=== PATIENT | female | born 1970 | race Caucasian/White ===

== ENCOUNTER 2019-04-25 08:43 | Inpatient (IN) | payer MEDICARE, MEDICAID ==
[~2019-04-25] VITALS: Ht 165.1 cm; Wt 137.0 kg
[~2019-04-25 08:43] MED LIST: ARIP15TA3 PO; DONE5TAB7 PO; INHALER; SERT100T PO; TRAZ-182 PO
--- NOTE | 2019-04-25 08:55 | NUR ---
Patient wants to come in to the psych unit - voluntary admission; " my head is not thinking right." Patient a/ox4, breathing even and unlabored, no sob noted, patient assisted to bed 6. Changed into a gown. No distress noted. Safety precaution observed.
--- NOTE | 2019-04-25 09:02 | NUR ---
URINE SAMPLE SENT TO LAB.
[2019-04-25 09:07] LABS: APPEARANCE,URINE Clear (CLEAR); BILIRUBIN,URINE Negative (NEGATIVE); BLOOD, URINE Trace-intact Ery/uL (NEGATIVE); COLOR,URINE Yellow (YELLOW); KETONES,URINE Negative (NEGATIVE); LEUKOCYTE ESTERASE ,URINE Negative (NEGATIVE); NITRITE, URINE Negative (NEGATIVE); PROTEIN,URINE Negative (NEGATIVE); UGLUCOSE Negative (NEGATIVE); UROBILINOGEN,URINE 0.2 EU/dL (0.2)
[2019-04-25 09:08] LABS: BACTERIA,URINE Few /HPF (None Seen); SQUAMOUS EPITHELIAL CELL,UR Few /HPF (None Seen); WBC,URINE 0-2 /HPF (0-3)
[2019-04-25 09:15] LABS: BASOPHILS % (AUTO) 0.5 % (0.0-2.0); EOSINOPHILS % (AUTO) 2.2 % (0.0-6.0); HEMATOCRIT 30 % (33-45); HEMOGLOBIN 9.7 g/dL (11.5-14.8); LYMPHOCYTES # (AUTO) 1.4 /CMM (0.8-4.8); LYMPHOCYTES % (AUTO) 15.8 % (20.0-44.0); MEAN CORPUSCULAR HGB CONC 33 g/dl (31.0-36.0); MEAN CORPUSCULAR VOLUME 78 fL (82-100); MONOCYTES # (AUTO) 0.5 /CMM (0.1-1.30); NEUTROPHILS # (AUTO) 6.7 /CMM (1.8-8.9); NEUTROPHILS % (AUTO) 75.5 % (43.0-81.0); PLATELET COUNT (AUTO) 416 /CMM (150-450); RED BLOOD CELL COUNT(AUTO) 3.79 MIL/uL (4.0-5.2); WHITE BLOOD COUNT (AUTO) 8.9 K/uL (4.3-11.0)
[2019-04-25 09:24] LABS: CALCIUM, SERUM 9.1 mg/dL (8.5-10.1); CARBON DIOXIDE 22 mmol/L (21-32); CHLORIDE 107 mmol/L (98-107); CREATININE 0.8 mg/dL (0.6-1.3); GLUCOSE 101 mg/dL (74-106); POTASSIUM 3.6 mmol/L (3.5-5.1); SODIUM SERUM 141 mmol/L (136-145); UREA NITROGEN, BLOOD 14 mg/dL (7-18)
[2019-04-25 09:29] LABS: ALANINE AMINOTRANSFERASE 17 U/L (12-78); ALBUMIN 3.2 g/dL (3.4-5.0); ALCOHOL, BLOOD < 3 mg/dL (0-0); ALKALINE PHOSPHATASE 109 U/L (46-116); ASPARTATE AMINOTRANSFERASE 15 U/L (15-37); BILIRUBIN,DIRECT 0.1 mg/dL (0.0-0.2); BILIRUBIN,TOTAL 0.2 mg/dL (0.2-1.0); TOTAL PROTEIN, SERUM 7.3 g/dL (6.4-8.2)
[2019-04-25 09:30] LABS: ACETAMINOPHEN 0 ug/ml (10-30); SALICYLATE 0.6 mg/dL (2.8-20.0)
--- NOTE | 2019-04-25 10:01 | NUR ---
room 214
[2019-04-25] MEDS ORDERED: Z-PACK (10:09)
[2019-04-25] MEDS ORDERED: OMEP20CA11 PO (10:09)
[2019-04-25] MEDS ORDERED: FLUT1DIS5 IH (10:09)
[2019-04-25] MEDS ORDERED: GABA300C PO (10:09)
[2019-04-25] MEDS ORDERED: ACET-73 PO (10:09)
[2019-04-25] MEDS ORDERED: TOPI50TA PO (10:09)
[2019-04-25] MEDS ORDERED: BENZ200C53 PO (10:09)
[2019-04-25] MEDS ORDERED: ESCI20TA PO (10:09)
[2019-04-25] MEDS ORDERED: ZIPR20CA2 PO (10:09)
[2019-04-25] MEDS ORDERED: LEVE500T9 PO (10:09)
--- NOTE | 2019-04-25 10:37 | NUR ---
report given to the Vladimir nurse
[2019-04-25 11:00] VITALS: BP 109/87
--- NOTE | 2019-04-25 11:00 | NUR ---
GPS ADMITTING NOTE: PT ADMITTED FROM HOME CAME TO ED FOR FEELING DEPRESSED,PT CAME ON VOLUNTARY STAY. UPON FACE TO FACE ASSESSMENT PT A/OX4, AMBULATORY, SELF CARE, PT FEELING DEPRESSED, TALKING TO SELF , HEARING VOICES . PT WAS SEEN AND EXAMINE BY DR UMAÑA , MEDICATIONS GIVEN PER ORDER. DARRIAN URRUTIA NOTIFIED RECONCILED MEDICATIONS, MRSA DONE . PT SKIN INTACT AND CLEAN , ALL CONTRABAND TAKEN FROM PT.
[2019-04-25] MEDS ORDERED: MAG HYDROX/AL HYDROX/SIMETH 30 ML UDC PO PRN (11:30)
[2019-04-25] MEDS ORDERED: LORAZEPAM 0.5 MG TABLET PO PRN (11:30)
[2019-04-25] MEDS ORDERED: BLOOD SUGAR DIAGNOSTIC 1 EACH STRIP IN ONE (11:30)
[2019-04-25] MEDS: risperiDONE 1 MG TABLET PO SCH ×2 (13:12→20:42)
[2019-04-25] MEDS: DIVALPROEX SODIUM 250 MG TABLET.DR PO SCH ×2 (13:12→16:44)
[2019-04-25] MEDS: BENZTROPINE MESYLATE (1 MG) 1 MG TABLET PO SCH ×2 (13:12→20:42)
[2019-04-25 16:00] VITALS: BP 124/55
[2019-04-25 20:00] VITALS: BP 135/78
[2019-04-25] MEDS: LEVETIRACETAM (250 MG) 250 MG TABLET PO SCH (20:42)
--- NOTE | 2019-04-25 22:34 | NUR ---
GPS RN NOTES CALLED AND NOTIFIED [facility] QA AUTOMATION ENGINEER DR. TORRES PT. IS REQUESTING FOR HER FLUTICASONE INHALER AND MEDICATION FOR HER COUGH. PT. HAS HER FLUTICASONE INHALER PRESCRIBED ONCE DAILY BUT PT. STATES SHE TAKES IT TWICE A DAY. PER [facility] QA AUTOMATION ENGINEER DR. TORRES NEW ORDERS: FLUTICASONE INHALER BID AND ROBITUSSIN 10ML Q6 HOUR PRN COUGH. WILL CARRY OUT ORDERS. WILL CONTINUE TO MONITOR.
[2019-04-25] MEDS: FLUTICASONE/VILANTEROL 1 EACH BLST.W.DEV IH SCH (23:14)
[2019-04-25] MEDS: GUAIFENESIN/D-METHORPHAN HB 5 ML UDC PO PRN (23:15)
[2019-04-26] MEDS: ACETAMINOPHEN 325 MG TABLET PO PRN (04:30)
[2019-04-26] MEDS: GUAIFENESIN/D-METHORPHAN HB 5 ML UDC PO PRN (05:21)
[2019-04-26 07:35] LABS: BILIRUBIN,TOTAL 0.3 mg/dL (0.2-1.0); CALCIUM, SERUM 8.7 mg/dL (8.5-10.1); CREATININE 0.8 mg/dL (0.6-1.3); POTASSIUM 3.6 mmol/L (3.5-5.1)
[2019-04-26 07:38] LABS: CHOLESTEROL 189 mg/dL (<200); HDL CHOLESTEROL 70 mg/dL (40-60); LDL 106 mg/dL (0-99); TRIGLYCERIDES 46 mg/dL (30-150)
[2019-04-26 08:00] VITALS: BP 117/69
[2019-04-26] MEDS: PANTOPRAZOLE 40 MG TABLET.DR PO SCH (08:46)
[2019-04-26] MEDS: DIVALPROEX SODIUM 250 MG TABLET.DR PO SCH ×2 (08:46→13:00)
[2019-04-26] MEDS: BENZTROPINE MESYLATE (1 MG) 1 MG TABLET PO SCH ×2 (08:46→20:39)
[2019-04-26] MEDS: risperiDONE 1 MG TABLET PO SCH ×2 (08:46→16:49)
[2019-04-26] MEDS: LEVETIRACETAM (250 MG) 250 MG TABLET PO SCH ×2 (08:46→20:40)
[2019-04-26] MEDS: FLUTICASONE/VILANTEROL 1 EACH BLST.W.DEV IH SCH ×2 (08:47→16:50)
[2019-04-26] MEDS ORDERED: FLUTICASONE/VILANTEROL 1 EACH BLST.W.DEV IH SCH (09:00)
--- NOTE | 2019-04-26 10:43 | NUR ---
GPS/RN-NOTES RECEIVED VERBAL ORDER FROM CHASIDY TO D/C ATIVAN 0.5MG P.O PRN. AND ORDERED ATIVAN 1MG P.O Q6HR PRN FOR ANXIETY AND RISPERDAL 1MG P.O X1 ONLY. NOTED AND CARRIED OUT.
[2019-04-26] MEDS ORDERED: risperiDONE 1 MG TABLET PO ONE (11:00)
[2019-04-26] MEDS: LORAZEPAM 1 MG TABLET PO PRN (11:10)
[2019-04-26] MEDS: AZITHROMYCIN 250 MG TABLET PO SCH (11:10)
--- NOTE | 2019-04-26 11:15 | NUR ---
GPS/RN-NOTES NOTED PATIENT VERY ANXIOUS ,ARGUMENTATIVE.PATIENT WAS SEEN BY DR. UMAÑA VERBAL WITH ORDERED TO GIVE ATIVAN. ATIVAN 1MG P.O PRN ORDER. WILL CONT. MONITORING FOR SAFETY AND BEHAVIOR.
--- NOTE | 2019-04-26 13:42 | NUR ---
GPS/RN-NOTES DEPAKOTE 250MG P.O NOT ADMINISTER DUE TO PATIENT WAS TOO SEDATED.
--- NOTE | 2019-04-26 14:40 | NUR ---
SW called the pts mother, Niya ([phone]), and informed her about the pts treatment plan and the pts initial discharge plan. Pts mother stated concern that the pt is having auditory hallucinations and need her medications to be adjusted. SW stated that is what is being worked on during this hospitalization and that the SW will keep her updated.
--- NOTE | 2019-04-26 15:23 | NUR ---
Group Note: Pt encouraged the pt to participate in group therapy on 04/26/19 at 2pm on the topic of discharge planning. Pt stated that she wants to either go back to her home or go to a different facility because she hears people saying terrible things about her and feels unsafe in this environment. SW provided an individual intervention and informed her that the voices are in her head and that the medications that are being given to her at the hospital will assist with the voices going away so she will be able to feel safe. Pt stated that she wanted to remain sleeping in her room and that she did not appreciate being woken up.
[2019-04-26 16:00] VITALS: BP 100/54
[2019-04-26 19:57] VITALS: BP 124/66
[2019-04-27] MEDS: GUAIFENESIN/D-METHORPHAN HB 5 ML UDC PO PRN ×2 (04:38→15:07)
[2019-04-27 08:00] VITALS: BP 123/66
[2019-04-27] MEDS: LEVETIRACETAM (250 MG) 250 MG TABLET PO SCH ×2 (08:34→21:30)
[2019-04-27] MEDS: DIVALPROEX SODIUM 250 MG TABLET.DR PO SCH ×2 (08:34→12:50)
[2019-04-27] MEDS: BENZTROPINE MESYLATE (1 MG) 1 MG TABLET PO SCH ×2 (08:34→21:30)
[2019-04-27] MEDS: PANTOPRAZOLE 40 MG TABLET.DR PO SCH (08:34)
[2019-04-27] MEDS: risperiDONE 1 MG TABLET PO SCH ×3 (08:35→17:11)
[2019-04-27] MEDS: FLUTICASONE/VILANTEROL 1 EACH BLST.W.DEV IH SCH ×2 (08:36→17:13)
[2019-04-27] MEDS: MAGNESIUM HYDROXIDE 30 ML UDC PO PRN (10:41)
[2019-04-27] MEDS: AZITHROMYCIN 250 MG TABLET PO SCH (10:41)
--- NOTE | 2019-04-27 10:47 | NUR ---
RN NOTE: PATIENT COMPLAINING OF CONSTIPATION.L PRN MOM GIVEN.
--- NOTE | 2019-04-27 11:01 | NUR ---
Initial Discharge Note: Pt currently resides in her home alone located at [address] [place] [address]; ([phone]). Per pt, she would like to return to her home or be taken to a different facility where she will feel more safe. SW will work with the pt and the MD regarding appropriate discharge planning. SW will form a safe and proper discharge.
[2019-04-27] MEDS: ALBUTEROL FS 2.5 MG/0.5 ML VIAL.NEB NEB PRN ×2 (11:40→15:20)
--- NOTE | 2019-04-27 15:08 | NUR ---
RN NOTE: PATIENT COUGHING. PRN ROBITUSSIN GIVEN.
--- NOTE | 2019-04-27 15:20 | NUR ---
SW met with the pt in her room to discuss her voluntary status because the pt stated that she wanted to be discharged against medical advice. SW explained to the pt that she has an impaired reality due to the hallucinations that she is experiencing and that the medications that she is being placed on in the hospital can assist with that. Pt stated that she hears people are talking about her and saying mean statements that make her feel unsafe. SW stated that she would like the pt to remain at the hospital and be compliant with her medications and informed her that if she attempts to leave AMA then the MD can have her evaluated and then placed on a hold.
[2019-04-27 16:00] VITALS: BP 114/75
--- NOTE | 2019-04-27 16:00 | NUR ---
RN NOTE: PATIENT WAS HAVING PARANOID AUDITORY HALLUCINATIONS STATING THAT A MAN WAS CALLING HER A NAZI. LATER, SHE CAME TO THE STATION AND FROZE. WHEN I ASKED HER WHAT'S GOING ON SHE STATED, "YOU DON'T SEE THE BEE HIVE RIGHT BEHIND ME?" Addendum: 04/28/19 at 1551 by ROXANN HENSLEY RN PATIENT DENIES VOICES TELLING HER TO HARM HERSELF
[2019-04-27] MEDS: LORAZEPAM 1 MG TABLET PO PRN (17:11)
--- NOTE | 2019-04-27 17:12 | NUR ---
RN NOTE: PATIENT IS VERY ANXIOUS. PRN ATIVAN GIVEN.
--- NOTE | 2019-04-27 17:31 | NUR ---
RN NOTE: PATIENT IS HAVING AUDITORY HALLUCINATIONS THINKING THAT PEOPLE ARE CALLING HER A NAZI AND STATING THAT THERE IS A BEE HIVE RIGHT BEHIND HER.
[2019-04-27 20:11] VITALS: BP 116/47
[2019-04-27] MEDS: DIVALPROEX SODIUM 500 MG TABLET.DR PO SCH (21:30)
[2019-04-27] MEDS: TEMAZEPAM 7.5 MG CAPSULE PO PRN (21:31)
[2019-04-28 08:00] VITALS: BP 112/72
[2019-04-28] MEDS: PANTOPRAZOLE 40 MG TABLET.DR PO SCH (09:10)
[2019-04-28] MEDS: DIVALPROEX SODIUM 250 MG TABLET.DR PO SCH ×2 (09:11→12:28)
[2019-04-28] MEDS: BENZTROPINE MESYLATE (1 MG) 1 MG TABLET PO SCH ×2 (09:11→20:30)
[2019-04-28] MEDS: LEVETIRACETAM (250 MG) 250 MG TABLET PO SCH ×2 (09:11→20:48)
[2019-04-28] MEDS: risperiDONE 1 MG TABLET PO SCH ×3 (09:11→16:16)
[2019-04-28] MEDS: FLUTICASONE/VILANTEROL 1 EACH BLST.W.DEV IH SCH ×2 (09:13→16:17)
[2019-04-28] MEDS: LORAZEPAM 1 MG TABLET PO PRN (12:39)
--- NOTE | 2019-04-28 12:39 | NUR ---
RN NOTE: PATIENT IS ANXIOUS AND AGITATED. PRN ATIVAN OFFERED. PATIENT REFUSED. MED WASTED IN OMNICELL WITH WITNESS.
--- NOTE | 2019-04-28 15:29 | NUR ---
Group Note: SW encouraged pt to attend group therapy on 04/28/19 at 2:30pm discussing anger management for when they are in the hospital and for once they are discharged but pt unable to attend.
--- NOTE | 2019-04-28 15:47 | NUR ---
RN NOTE: PATIENT IS HAVING AUDITORY HALLUCINATIONS AND IS EXTREMELY PARANOID. SHE IS STATING THAT THE NEIGHBOR'S FAMILY IS CALLING HER A NAZI AND TALKING BAD ABOUT HER. WE WENT IN THE [place] TO HEAR IT BUT SHE STATED SHE DOESN'T HEAR IT ANYMORE BUT IT WAS THERE. Addendum: 04/28/19 at 1551 by ROXANN HENSLEY RN PATIENT DENIES VOICES TELLING HER TO HARM HERSELF OR OTHERS
[2019-04-28 16:00] VITALS: BP 109/58
--- NOTE | 2019-04-28 16:52 | NUR ---
RN NOTE: PATIENT IS HAVING AUDITORY HALLUCINATIONS. WHEN I INFORMED THE PATIENT THAT I DONT HEAR WHAT YOURE HEARING SHE STATED THAT I NEED TO OPEN UP MY BRAIN JUST A LITTLE BIT. PATIENT CALLED ME A BITCH AND TOLD ME TO GET THE HELL OUT HER ROOM. PATIENT IS [id number].
[2019-04-28 20:00] VITALS: BP 116/61
[2019-04-28 20:06] VITALS: BP 116/61
[2019-04-28] MEDS: DIVALPROEX SODIUM 500 MG TABLET.DR PO SCH (20:30)
[2019-04-29 00:24] VITALS: BP 116/61
[2019-04-29] MEDS: ACETAMINOPHEN 325 MG TABLET PO PRN (04:07)
[2019-04-29] MEDS: GUAIFENESIN/D-METHORPHAN HB 5 ML UDC PO PRN (04:25)
[2019-04-29 08:00] VITALS: BP 125/89
[2019-04-29] MEDS: PANTOPRAZOLE 40 MG TABLET.DR PO SCH (08:15)
[2019-04-29] MEDS: FLUTICASONE/VILANTEROL 1 EACH BLST.W.DEV IH SCH ×2 (08:15→16:35)
[2019-04-29] MEDS: risperiDONE 1 MG TABLET PO SCH ×3 (08:16→16:34)
[2019-04-29] MEDS: DIVALPROEX SODIUM 250 MG TABLET.DR PO SCH ×2 (08:16→12:21)
[2019-04-29] MEDS: BENZTROPINE MESYLATE (1 MG) 1 MG TABLET PO SCH ×2 (08:16→20:11)
[2019-04-29] MEDS: LEVETIRACETAM (250 MG) 250 MG TABLET PO SCH ×2 (08:17→20:11)
--- NOTE | 2019-04-29 12:08 | NUR ---
SW spoke to the pt and informed of her of the steps proceeding her attempting to leave against medical advice (AMA). SW advised her to stay voluntarily because she is not presenting stable and therefore if she attempts to leave that she may get placed on a hold.
--- NOTE | 2019-04-29 13:02 | NUR ---
RN NOTE: UPON BODY ASSESSMENT, NOTICED 1+ EDEMA ON BLE. INFORMED WM FELIX. HE WILL ASSESS PATIENT UPON ARRIVAL. HE WILL ASSESS PATIENT UPON ARRIVAL.
--- NOTE | 2019-04-29 13:05 | NUR ---
RN NOTE: PATIENT IS PARANOID. SHE IS THINKING THAT EVERYONE IS TALKING ABOUT HER. I KEEP INFORMING HER THAT I DON'T HEAR ANYONE TALKING ABOUT HER. PATIENT IS RESPONDING TO INTERNAL STIMULI AND IS HAVING AUDITORY HALLUCINATIONS.
[2019-04-29] MEDS: FUROSEMIDE 40 MG TABLET PO SCH (14:17)
[2019-04-29 15:06] LABS: CALCIUM, SERUM 8.8 mg/dL (8.5-10.1); CREATININE 0.6 mg/dL (0.6-1.3); POTASSIUM 4.2 mmol/L (3.5-5.1)
[2019-04-29 16:00] VITALS: BP 122/66
[2019-04-29 20:00] VITALS: BP 126/64
[2019-04-29] MEDS: DIVALPROEX SODIUM 500 MG TABLET.DR PO SCH (20:11)
[2019-04-29] MEDS: LORAZEPAM 1 MG TABLET PO PRN (20:11)
[2019-04-29 20:48] VITALS: BP 126/64
--- NOTE | 2019-04-29 21:30 | NUR ---
RN NOTES: -AT 2110 SHE REQUEST FOR HER PILL SHE FEEL ANXIOUS REMEMBERING THAT SHE WANTED TO CHANGE HER DOCTOR, EXPLAINED TO HER HAT WE WILL TRY TO F/U IN THE MORNING THEN SHE AGREED. -CONTINUE TO MONITOR, BED LOW AND LOCKED,BED ALARM ON, KEPT ON CLOSE WATCH. -AT 0 ABLE TO SLEEP WELL.
--- NOTE | 2019-04-30 05:22 | NUR ---
RN NOTES: AWAKE WITH ON AND OFF COUGH, RT REQUESTED TO GIVE HANDHELD NEBULIZER, SHE AGREED AND TOLERATED.
[2019-04-30] MEDS: ALBUTEROL FS 2.5 MG/0.5 ML VIAL.NEB NEB PRN (05:23)
[2019-04-30 07:58] LABS: BASOPHILS % (AUTO) 0.4 % (0.0-2.0); EOSINOPHILS % (AUTO) 2.3 % (0.0-6.0); HEMATOCRIT 31 % (33-45); LYMPHOCYTES # (AUTO) 1.9 /CMM (0.8-4.8); LYMPHOCYTES % (AUTO) 23.4 % (20.0-44.0); MEAN CORPUSCULAR HGB CONC 32 g/dl (31.0-36.0); MEAN CORPUSCULAR VOLUME 78 fL (82-100); MONOCYTES # (AUTO) 0.5 /CMM (0.1-1.30); MONOCYTES % (AUTO) 6.3 % (2.0-12.0); NEUTROPHILS # (AUTO) 5.6 /CMM (1.8-8.9); NEUTROPHILS % (AUTO) 67.6 % (43.0-81.0); PLATELET COUNT (AUTO) 426 /CMM (150-450); RED BLOOD CELL COUNT(AUTO) 3.99 MIL/uL (4.0-5.2); WHITE BLOOD COUNT (AUTO) 8.2 K/uL (4.3-11.0)
[2019-04-30 08:00] VITALS: BP 124/77
[2019-04-30 08:08] LABS: BILIRUBIN,TOTAL 0.2 mg/dL (0.2-1.0); CALCIUM, SERUM 8.9 mg/dL (8.5-10.1); CREATININE 0.8 mg/dL (0.6-1.3); POTASSIUM 3.9 mmol/L (3.5-5.1); TOTAL PROTEIN, SERUM 7.2 g/dL (6.4-8.2)
[2019-04-30] MEDS: risperiDONE 1 MG TABLET PO SCH ×3 (08:25→17:09)
[2019-04-30] MEDS: PANTOPRAZOLE 40 MG TABLET.DR PO SCH (08:25)
[2019-04-30] MEDS: DIVALPROEX SODIUM 250 MG TABLET.DR PO SCH ×2 (08:25→12:03)
[2019-04-30] MEDS: FLUTICASONE/VILANTEROL 1 EACH BLST.W.DEV IH SCH ×2 (08:25→17:08)
[2019-04-30] MEDS: LEVETIRACETAM (250 MG) 250 MG TABLET PO SCH ×2 (08:26→20:18)
[2019-04-30] MEDS: BENZTROPINE MESYLATE (1 MG) 1 MG TABLET PO SCH ×2 (08:30→20:18)
--- NOTE | 2019-04-30 08:31 | NUR ---
gps/rn pt refused cogentin offered x3
[2019-04-30] MEDS: ACETAMINOPHEN 325 MG TABLET PO PRN (15:12)
[2019-04-30 16:00] VITALS: BP_SYST 113; BP_SYST 130; BP_DIAS 60; BP_DIAS 84
[2019-04-30 20:00] VITALS: BP 132/65
[2019-04-30 20:13] VITALS: BP 132/65
[2019-04-30] MEDS: DIVALPROEX SODIUM 500 MG TABLET.DR PO SCH (20:18)
[2019-05-01] MEDS: GUAIFENESIN/D-METHORPHAN HB 5 ML UDC PO PRN (01:44)
--- NOTE | 2019-05-01 01:44 | NUR ---
GPS RN NOTE, PATIENT HAS A COMPLAINT OF A PERSISTENT COUGH AND IS REQUESTING ROBITUSSIN AT THIS TIME. PATIENT VITAL SIGNS ARE STABLE. GAVE ROBITUSSIN DM 10 ML PO Q6HR PRN ORDERED. WILL REASSESS FOR COUGH AND I WILL CONTINUE TO MONITOR THIS PATIENT.
--- NOTE | 2019-05-01 04:40 | NUR ---
GPS RN notes Called RT for nebulizer treatment for Pt. Pt is awake with on and off cough. Pt requesting nebulizer. Pt states " Can I have nebulizer?". Awating for RT to come.
[2019-05-01] MEDS: ALBUTEROL FS 2.5 MG/0.5 ML VIAL.NEB NEB PRN (04:49)
--- NOTE | 2019-05-01 04:49 | NUR ---
GPS RN notes Rt at the bedside.
[2019-05-01] MEDS: ACETAMINOPHEN 325 MG TABLET PO PRN (06:16)
--- NOTE | 2019-05-01 06:18 | NUR ---
GPS RN notes Pt is complaining of back pain and requesting Tylenol. Administered Tylenol 325mg/2tabs/PO as ordered for pain per Pt request. Pt states "Can I have Tylenol for my back pain please?" Instructed to call. Will continue to monitor Q 15 mins.
--- NOTE | 2019-05-01 06:47 | NUR ---
GPS RN notes Pt refused to have blood drawn by hospital laboratory technician. Pt states "it's been three times." Educate Pt about important to have blood check. Pt keep refusing. Will continue to monitor.
[2019-05-01 08:00] VITALS: BP 137/82
[2019-05-01] MEDS: PANTOPRAZOLE 40 MG TABLET.DR PO SCH (08:45)
[2019-05-01] MEDS: DIVALPROEX SODIUM 250 MG TABLET.DR PO SCH ×2 (08:46→13:11)
[2019-05-01] MEDS: BENZTROPINE MESYLATE (1 MG) 1 MG TABLET PO SCH ×3 (08:46→20:36)
[2019-05-01] MEDS: risperiDONE 1 MG TABLET PO SCH ×3 (08:46→17:00)
[2019-05-01] MEDS: LEVETIRACETAM (250 MG) 250 MG TABLET PO SCH ×2 (08:46→20:36)
[2019-05-01] MEDS: FLUTICASONE/VILANTEROL 1 EACH BLST.W.DEV IH SCH (08:47)
[2019-05-01 10:16] LABS: CALCIUM, SERUM 8.7 mg/dL (8.5-10.1); CREATININE 0.7 mg/dL (0.6-1.3); MAGNESIUM 1.9 mg/dL (1.8-2.4); PHOSPHORUS 3.9 mg/dL (2.5-4.9); POTASSIUM 3.7 mmol/L (3.5-5.1)
[2019-05-01 10:26] LABS: THYROID STIMULATING HORMONE 1.665 uIU/mL (0.358-3.74)
[2019-05-01] MEDS: FUROSEMIDE 40 MG TABLET PO SCH (13:11)
[2019-05-01] MEDS: ADVAIR INH SCH (17:01)
[2019-05-01 20:00] VITALS: BP 111/54
[2019-05-01 20:05] VITALS: BP 111/54
[2019-05-01] MEDS: DIVALPROEX SODIUM 500 MG TABLET.DR PO SCH (20:36)
[2019-05-02] MEDS: ALBUTEROL FS 2.5 MG/0.5 ML VIAL.NEB NEB PRN ×2 (03:19→08:46)
[2019-05-02 07:04] LABS: CALCIUM, SERUM 8.8 mg/dL (8.5-10.1); CREATININE 0.7 mg/dL (0.6-1.3); POTASSIUM 3.6 mmol/L (3.5-5.1)
[2019-05-02 07:25] LABS: THYROID STIMULATING HORMONE 3.877 uIU/mL (0.358-3.74)
[2019-05-02] MEDS ORDERED: POTASSIUM CHLORIDE 20 MEQ TAB.PRT.SR PO ONE (07:30)
[2019-05-02 08:00] VITALS: BP 119/69
[2019-05-02] MEDS: risperiDONE 1 MG TABLET PO SCH ×4 (08:22→21:22)
[2019-05-02] MEDS: DIVALPROEX SODIUM 250 MG TABLET.DR PO SCH ×2 (08:22→12:24)
[2019-05-02] MEDS: FUROSEMIDE 40 MG TABLET PO SCH (08:22)
[2019-05-02] MEDS: LEVETIRACETAM (250 MG) 250 MG TABLET PO SCH ×2 (08:22→20:22)
[2019-05-02] MEDS: PANTOPRAZOLE 40 MG TABLET.DR PO SCH (08:23)
[2019-05-02] MEDS: ADVAIR INH SCH ×2 (08:23→16:05)
[2019-05-02] MEDS: BENZTROPINE MESYLATE (1 MG) 1 MG TABLET PO SCH ×2 (08:24→20:22)
--- NOTE | 2019-05-02 14:50 | NUR ---
Group Note: Pt attended group therapy on 05/02/19 at 1:30pm discussing the topic of support systems for when they are in the hospital and for once they are discharged S: Pt stated, My support system is the program that I belong to. Its called [facility] and they give me a outsole caser that helps me navigate and have access to the support I need, such as my therapist and the medication I require for my schizophrenia. O: Pt was present during the group session and was engaged. Pt appeared alert and presented with a flat affect and congruent mood. Pt maintained appropriate eye contact and had an appropriate tone of voice. A: Pt expressed that when she is upset because she cant get help with managing her medication and finding an appropriate psychiatrist for when she is discharged. Pt became visibly upset as she spoke about losing the support of a former long-term therapist and hopes to repair that relationship in the future. P: Pt will continue milieu treatment and medication stabilization.
[2019-05-02 16:00] VITALS: BP 124/72
[2019-05-02] MEDS: DIVALPROEX SODIUM 500 MG TABLET.DR PO SCH (19:48)
[2019-05-02] MEDS: TEMAZEPAM 7.5 MG CAPSULE PO PRN (20:23)
[2019-05-02] MEDS: LORAZEPAM 1 MG TABLET PO PRN (21:22)
--- NOTE | 2019-05-03 01:12 | NUR ---
RN NOTES Patient complaints of upset stomach, feeling of indigestion. Offered Maalox as ordered, patient took the medication well. Encouraged patient to assume L side lying position. Will continue to monitor accordingly.
[2019-05-03] MEDS: ALBUTEROL FS 2.5 MG/0.5 ML VIAL.NEB NEB PRN ×2 (06:27→22:14)
[2019-05-03] MEDS: ACETAMINOPHEN 325 MG TABLET PO PRN (06:47)
[2019-05-03 08:00] VITALS: BP 132/85
[2019-05-03] MEDS: MAGNESIUM HYDROXIDE 30 ML UDC PO PRN (08:19)
--- NOTE | 2019-05-03 08:19 | NUR ---
GIVEN MOM FOR CONSTIPATION.
[2019-05-03] MEDS: ADVAIR INH SCH ×2 (08:20→17:24)
[2019-05-03] MEDS: FUROSEMIDE 40 MG TABLET PO SCH (08:20)
[2019-05-03] MEDS: LEVETIRACETAM (250 MG) 250 MG TABLET PO SCH ×2 (08:20→21:18)
[2019-05-03] MEDS: PANTOPRAZOLE 40 MG TABLET.DR PO SCH (08:20)
[2019-05-03] MEDS: risperiDONE 1 MG TABLET PO SCH ×4 (08:20→21:20)
[2019-05-03] MEDS: DIVALPROEX SODIUM 250 MG TABLET.DR PO SCH (08:25)
[2019-05-03] MEDS: BENZTROPINE MESYLATE (1 MG) 1 MG TABLET PO SCH ×3 (08:25→21:18)
[2019-05-03 10:14] LABS: CALCIUM, SERUM 8.8 mg/dL (8.5-10.1); CREATININE 0.8 mg/dL (0.6-1.3); POTASSIUM 3.8 mmol/L (3.5-5.1)
--- NOTE | 2019-05-03 14:00 | NUR ---
[facility] BY DR. UMAÑA AND SENT TO PHARMACY-RECEIPT TO CHART.
[2019-05-03 15:48] VITALS: BP 135/79
--- NOTE | 2019-05-03 16:33 | NUR ---
PT. NOW REPORTS DIARRHEA AFTER HAVING MOM THIS AM.
[2019-05-03 20:00] VITALS: BP 96/56
[2019-05-03] MEDS: DIVALPROEX SODIUM 500 MG TABLET.DR PO SCH (20:07)
--- NOTE | 2019-05-03 23:02 | NUR ---
GPS-RN PATIENT WAS THROWING UP WITH FOOD CONTENT IN LARGE AMOUNT. ABDOMEN IS SOFT AND NON-TENDER. OFFERED MAALOX BUT PATIENT REFUSED. NO C/O PAIN OR DISCOMFORT AT THIS TIME. PATIENT HAD BOWEL MOVEMENT TODAY. WILL CONTINUE TO MONITOR PATIENT.
[2019-05-04] MEDS: LORAZEPAM 1 MG TABLET PO PRN (06:17)
[2019-05-04 07:24] LABS: BASOPHILS % (AUTO) 0.4 % (0.0-2.0); EOSINOPHILS % (AUTO) 2.1 % (0.0-6.0); HEMATOCRIT 30 % (33-45); HEMOGLOBIN 9.6 g/dL (11.5-14.8); LYMPHOCYTES # (AUTO) 1.7 /CMM (0.8-4.8); LYMPHOCYTES % (AUTO) 26.1 % (20.0-44.0); MEAN CORPUSCULAR HGB CONC 32 g/dl (31.0-36.0); MEAN CORPUSCULAR VOLUME 78 fL (82-100); MONOCYTES # (AUTO) 0.4 /CMM (0.1-1.30); MONOCYTES % (AUTO) 6.3 % (2.0-12.0); NEUTROPHILS # (AUTO) 4.3 /CMM (1.8-8.9); NEUTROPHILS % (AUTO) 65.1 % (43.0-81.0); PLATELET COUNT (AUTO) 406 /CMM (150-450); RED BLOOD CELL COUNT(AUTO) 3.82 MIL/uL (4.0-5.2); WHITE BLOOD COUNT (AUTO) 6.6 K/uL (4.3-11.0)
[2019-05-04 07:52] LABS: ALBUMIN 2.9 g/dL (3.4-5.0); BILIRUBIN,TOTAL 0.2 mg/dL (0.2-1.0); CREATININE 0.7 mg/dL (0.6-1.3)
[2019-05-04 08:00] VITALS: BP 153/78
[2019-05-04] MEDS: BENZTROPINE MESYLATE (1 MG) 1 MG TABLET PO SCH ×3 (09:00→20:22)
[2019-05-04] MEDS: ADVAIR INH SCH ×2 (09:05→18:57)
[2019-05-04] MEDS: FUROSEMIDE 40 MG TABLET PO SCH (09:18)
[2019-05-04] MEDS: PANTOPRAZOLE 40 MG TABLET.DR PO SCH (09:18)
[2019-05-04] MEDS: LEVETIRACETAM (250 MG) 250 MG TABLET PO SCH ×2 (09:19→20:22)
[2019-05-04] MEDS: DIVALPROEX SODIUM 250 MG TABLET.DR PO SCH (09:20)
[2019-05-04] MEDS ORDERED: MISCELLANEOUS MED 1 EA EA XX ONE (11:30)
--- NOTE | 2019-05-04 11:30 | NUR ---
DR. UMAÑA HERE [facility] ORDERED THEN DC'D.NEURO CONSULT ORDERED, HERE,DR. UMAÑA TO CONTACT HIM .DOSES CHANGED ON DEPAKOTE AND RISPERDAL.VS CHECKED.BP 130/68,HEART RATE 99,POX 98%.PT. APPEARS A LITTLE WEAK,BUT STABLE.PT. INFORMED DR. UMAÑA THAT SHE VOMITED LAST NOC AND POSSIBLY HAD A SEIZURE.
[2019-05-04] MEDS ORDERED: risperiDONE 1 MG TABLET PO ONE ×2 (12:00→15:00)
--- NOTE | 2019-05-04 14:35 | NUR ---
Individual Intervention: SW met with the pt who stated that she did not want to be transferred to a facility and that she wants to be discharged home. SW stated that the MD believes that she is not fit to return to her home at this time and therefore she needs to go to facility for further stabilization.
--- NOTE | 2019-05-04 14:37 | NUR ---
SNF Referral: SW faxed a referral to 2 SNFs listed below. [facility]: [phone] [facility]: [phone].
--- NOTE | 2019-05-04 15:50 | NUR ---
GROUP NOTE: SW encouraged pt to attend group therapy discussing "discharge planning." Pt stated that she wanted to go home and that she did not want to go to a SNF as she did not being in one. Pt states that she has been living alone for along time and does not want to lose her independence. Pt acknowledges that sometimes she isn't able to take care of her self but states that her [facility] program will help her get on the "right track." Pt expressed that she feels ready to go home and has been compliant with her treatment and just really wants to be discharged.
[2019-05-04 16:00] VITALS: BP 112/62
[2019-05-04] MEDS ORDERED: risperiDONE 1 MG TABLET PO SCH (17:00)
--- NOTE | 2019-05-04 18:00 | NUR ---
pt. calmer and in room.
[2019-05-04] MEDS: risperiDONE 1 MG TABLET PO SCH ×2 (18:57→20:22)
[2019-05-04 19:55] VITALS: BP 103/59
[2019-05-04] MEDS ORDERED: DIVALPROEX SODIUM 500 MG TABLET.DR PO SCH (20:00)
[2019-05-04] MEDS: DIVALPROEX SODIUM 500 MG TABLET.DR PO SCH (21:08)
[2019-05-05] MEDS: GUAIFENESIN/D-METHORPHAN HB 5 ML UDC PO PRN (05:28)
[2019-05-05 08:00] VITALS: BP 146/74
[2019-05-05] MEDS: ADVAIR INH SCH ×2 (08:23→16:51)
[2019-05-05] MEDS: risperiDONE 1 MG TABLET PO SCH ×4 (08:24→21:00)
[2019-05-05] MEDS: FUROSEMIDE 40 MG TABLET PO SCH (08:24)
[2019-05-05] MEDS: PANTOPRAZOLE 40 MG TABLET.DR PO SCH (08:24)
[2019-05-05] MEDS: DIVALPROEX SODIUM 250 MG TABLET.DR PO SCH (08:24)
[2019-05-05 08:25] LABS: CREATININE 0.8 mg/dL (0.6-1.3); POTASSIUM 3.8 mmol/L (3.5-5.1)
[2019-05-05] MEDS: LEVETIRACETAM (250 MG) 250 MG TABLET PO SCH ×2 (08:25→21:00)
[2019-05-05] MEDS: BENZTROPINE MESYLATE (1 MG) 1 MG TABLET PO SCH ×2 (08:32→21:00)
--- NOTE | 2019-05-05 09:35 | NUR ---
PC Hearing Notification: SW called the pts mother, Niya ([phone]), and informed her about the PC hearing process.
--- NOTE | 2019-05-05 10:45 | NUR ---
JAMES ([phone]) from [facility] contacted the and stated that the pt was accepted to their facility.
--- NOTE | 2019-05-05 10:45 | NUR ---
Geovanna ([phone]) from [facility] contacted the and stated that the pt was accepted to their facility.
[2019-05-05] MEDS: LEVOFLOXACIN (500MG) 500 MG TABLET PO SCH (11:13)
--- NOTE | 2019-05-05 13:14 | NUR ---
Individual Intervention: SW spoke to the pt and she stated that she wanted to request a second hearing because she does not believe that she needs to be in the hospital longer. SW stated that request is within her rights and that the staff will proceed to request one.
--- NOTE | 2019-05-05 14:38 | NUR ---
Pt. requested for a second hearing, request paper faxed to [facility] at [phone]. traveling secretary called the office and left a message.
[2019-05-05] MEDS: ACETAMINOPHEN 325 MG TABLET PO PRN (15:19)
--- NOTE | 2019-05-05 15:22 | NUR ---
RN NOTE: PATIENT C/O MILD PAIN 3/10 TO BOTH LEGS. ADMINISTERED TYLENOL 325 MG TAB, 2 TABS PO.
[2019-05-05 16:00] VITALS: BP 134/81
--- NOTE | 2019-05-05 16:09 | NUR ---
SW invited patient to attend today's support group at 2 pm regarding mindfulness. Patient was pacing the halls and refused to attend. SW encouraged patient to attend. Patient refused.
--- NOTE | 2019-05-05 16:20 | NUR ---
Individual Intervention: SW spoke to the pt about her discharge being set for Thursday to a custodial facility. Pt stated that she does not want to go but the SW stated that is the recommendation and that home is not the safest discharge place for her. Pt stated that she will go to the facility.
[2019-05-05 20:24] VITALS: BP 113/73
[2019-05-05] MEDS: DIVALPROEX SODIUM 500 MG TABLET.DR PO SCH (21:00)
[2019-05-06 07:08] LABS: BASOPHILS % (AUTO) 0.3 % (0.0-2.0); EOSINOPHILS % (AUTO) 1.3 % (0.0-6.0); HEMATOCRIT 27 % (33-45); HEMOGLOBIN 8.8 g/dL (11.5-14.8); LYMPHOCYTES # (AUTO) 1.6 /CMM (0.8-4.8); MEAN CORPUSCULAR HGB CONC 33 g/dl (31.0-36.0); MEAN CORPUSCULAR VOLUME 77 fL (82-100); MONOCYTES # (AUTO) 0.8 /CMM (0.1-1.30); MONOCYTES % (AUTO) 8.4 % (2.0-12.0); NEUTROPHILS # (AUTO) 6.8 /CMM (1.8-8.9); PLATELET COUNT (AUTO) 417 /CMM (150-450); RED BLOOD CELL COUNT(AUTO) 3.49 MIL/uL (4.0-5.2); WHITE BLOOD COUNT (AUTO) 9.3 K/uL (4.3-11.0)
[2019-05-06 07:32] LABS: CALCIUM, SERUM 8.6 mg/dL (8.5-10.1); CREATININE 0.7 mg/dL (0.6-1.3); PHOSPHORUS 4.2 mg/dL (2.5-4.9); POTASSIUM 3.8 mmol/L (3.5-5.1)
[2019-05-06 08:00] VITALS: BP 124/81
[2019-05-06] MEDS: risperiDONE 1 MG TABLET PO SCH ×4 (08:02→21:28)
[2019-05-06] MEDS: DIVALPROEX SODIUM 250 MG TABLET.DR PO SCH (08:02)
[2019-05-06] MEDS: FUROSEMIDE 40 MG TABLET PO SCH (08:02)
[2019-05-06] MEDS: PANTOPRAZOLE 40 MG TABLET.DR PO SCH (08:02)
[2019-05-06] MEDS: LEVOFLOXACIN (500MG) 500 MG TABLET PO SCH (08:02)
[2019-05-06] MEDS: LEVETIRACETAM (250 MG) 250 MG TABLET PO SCH ×2 (08:02→21:27)
[2019-05-06] MEDS: BENZTROPINE MESYLATE (1 MG) 1 MG TABLET PO SCH ×2 (08:03→21:00)
[2019-05-06] MEDS: ADVAIR INH SCH ×2 (08:04→17:01)
--- NOTE | 2019-05-06 08:06 | NUR ---
GPS/RN-NOTES PATIENT REFUSED COGENTIN 1MG P.O DESPITE EXPLANATIONS RISK AND BENEFITS. STATED" I DON'T LIKE IT". OFFERED X3
--- NOTE | 2019-05-06 11:29 | NUR ---
Individual Intervention with pt and the MD: SW met with the pt with her MD, Dr. Brewer, who informed her about her health condition and the benefits of being in a [place] [facility] facility. Pt was informed that she needs to be on antibiotics but also needs to be physically active and highly recommended a SNF. Pt stated that she agrees to be discharged to one the following day.
--- NOTE | 2019-05-06 14:58 | NUR ---
RYAN called the pts mother, Niya ([phone]), and informed her that the pt will be discharged to [facility] the following day around 11am.
--- NOTE | 2019-05-06 15:01 | NUR ---
GROUP NOTE: SW encouraged pt to attend group on this day to discuss "impaired reality-testing." Pt does not understand the need for SNF placement, pt states that she is able to take care of herself and that she does not need assistance with her daily activities of living. Pts thought process is disorganized and her speech is mumbled and she was having a difficult time formulating sentences. Pt does not demonstrate that she has gained knowledge of the reason for her hospitalization and continues to minimize her symptoms psychosis. Pt expressed that she just wants to return home.
[2019-05-06 15:55] VITALS: BP 124/76
[2019-05-06] MEDS: ENSURE ENLIVE CHOC 237 ML CAN PO SCH (17:26)
--- NOTE | 2019-05-06 19:08 | NUR ---
GPS/RN-NOTES NEED SPUTUM SPECIMEN,NO SPECIMEN COLLECTED THIS SHIFT. PATIENT AWARE,ENDORSE TO INCOMING NURSE FOR F/U AND CONTINUITY OF CARE.
[2019-05-06 19:45] VITALS: BP 135/82
[2019-05-06] MEDS ORDERED: DIVALPROEX SODIUM 500 MG TABLET.DR PO SCH (22:00)
[2019-05-07] MEDS: ACETAMINOPHEN 325 MG TABLET PO PRN (01:53)
[2019-05-07] MEDS: MAGNESIUM HYDROXIDE 30 ML UDC PO PRN (04:05)
--- NOTE | 2019-05-07 07:13 | NUR ---
RN NOTES: PT. REFUSED TO PROVIDE SPUTUM SPECIMEN , ENCOURAGED X3 , EXPLAINED RISKS AND BENEFITS STILL REFUSED .
[2019-05-07 08:00] VITALS: BP 126/73
[2019-05-07] MEDS: PANTOPRAZOLE 40 MG TABLET.DR PO SCH (08:12)
[2019-05-07] MEDS: ENSURE ENLIVE CHOC 237 ML CAN PO SCH (08:17)
[2019-05-07] MEDS: DIVALPROEX SODIUM 250 MG TABLET.DR PO SCH (08:18)
[2019-05-07] MEDS: LEVETIRACETAM (250 MG) 250 MG TABLET PO SCH (08:18)
[2019-05-07] MEDS: risperiDONE 1 MG TABLET PO SCH ×2 (08:18→12:31)
[2019-05-07] MEDS: LEVOFLOXACIN (500MG) 500 MG TABLET PO SCH (08:18)
[2019-05-07] MEDS: FUROSEMIDE 40 MG TABLET PO SCH (08:18)
[2019-05-07] MEDS: BENZTROPINE MESYLATE (1 MG) 1 MG TABLET PO SCH (08:18)
[2019-05-07] MEDS: ADVAIR INH SCH (08:20)
--- NOTE | 2019-05-07 09:00 | NUR ---
DR. UMAÑA GAVE AN ORDER TO D/C HOLD AND D/C TO [facility], TO CONTINUE SAME MEDS INCLUDING PRN AND TO FOLLOW UP WITH PSYCH AND MEDICAL DOCTORS. PT. AGREED TO GO ON THAT FACILITY. SPOKE TO RYAN THE CABINETMAKER APPRENTICE OF THE FACILITY AND SAID THEY WILL ACCEPT HER TODAY. MOTHER MARY MEZA MADE AWARE OF THE DISCHARGE AND AGREED.
--- NOTE | 2019-05-07 14:08 | NUR ---
GPS/RN-NOTES PATIENT WAS DISCHARGE TO [facility] TODAY. DR. UMAÑA AND DR. LAU AWARE AND AGREED OF PATIENT DISCHARGE.PATIENT LEFT THE UNIT IN STABLE CONDITION ALERT ORIENTED X4 AMBULATORY STEADY GAIT. PATIENT DID NOT VERBALIZED SI/HI ,DENIES VISUAL/AUDITORY HALLUCINATIONS AT THE TIME OF DISCHARGE.REPORT WAS GIVEN TO KELSEY ( DATA MODELING SPECIALIST).PATIENT WAS PICK BY AMBULANCE VIA GURNEY WITH TWO STAFF ASSIST. PATIENT LEFT THE UNIT WITH ALL BELONGINGS .PATIENT'S MOTHER ( PATRICIO) MADE AWARE OF THE DISCHARGE
--- NOTE | 2019-05-09 11:04 | NUR ---
Discharge Note: Pt was discharged on 05/07/19 to [facility] ([facility]) [place] at [address] [place] [address]; ([phone]). Pt was transported via [facility] at 11AM. Upon discharge, the pt informed the nurses that she denied both suicidal and homicidal ideation as well as auditory and visual hallucinations. Pt will be under the care of psychiatrist, Dr. Anne Deutsch, located at [address] [address]; and her musical therapist, Dr. Rivers, located at [address] [place] [address]; .
== END 2019-05-07 14:10 | DRG 885 ==
LOC: ER 08:46 → GPS 10:50
PROVIDERS: ADMIT Psychiatry & Neurology Psychosomatic Medicine; ATTEND Nurse Practitioner Acute Care
DX: F25.0 Schizoaffective disorder, bipolar type (principal); J18.9 Pneumonia, unspecified organism; Z68.43 Body mass index [BMI] 50.0-59.9, adult; E44.0 Moderate protein-calorie malnutrition; J44.0 Chronic obstructive pulmonary disease with (acute) lower respiratory infection; F41.9 Anxiety disorder, unspecified; Z86.73 Personal history of transient ischemic attack (TIA), and cerebral infarction without residual deficits; Z83.3 Family history of diabetes mellitus; E66.01 Morbid (severe) obesity due to excess calories; J45.909 Unspecified asthma, uncomplicated; D64.9 Anemia, unspecified; G40.909 Epilepsy, unspecified, not intractable, without status epilepticus; E88.09 Other disorders of plasma-protein metabolism, not elsewhere classified; D50.9 Iron deficiency anemia, unspecified
CPT/HCPCS: 36415; 71045-TC; 80048-TC; 80053-TC; 80061-TC; 80076-TC; 80164-TC; 80305; 81000-TC; 82962-TC; 83540-TC; 83735-TC; 83880; 84100-TC; 84439-TC; 84443-TC; 84702-TC; 85025-TC; 87081-TC; 93307-TC; 93970-TC; G0480